=== PATIENT | male | born 1985 | race Caucasian/White ===

== ENCOUNTER 2017-12-30 17:12 | Emergency (ER) | payer OTHER ==
[2017-12-30 17:19] VITALS: BP 0/0; PULSE 103; TEMP 98; BMI 29.2
--- NOTE | 2017-12-30 17:19 | PDOC ---
Rapid Medical Evaluation Time Seen by Provider: 12/30/17 17:13 Medical Evaluation: Allergies Allergy/AdvReac Type Severity Reaction Status Date / Time No Known Allergies Allergy Verified 06/20/16 17:25 I have performed a brief in-person evaluation of this patient. The patient presents with a chief complaint of: right eye redness and drainage since last night. From [facility] [employer] workers deny fall or trauma to right eye Pertinent physical exam findings: injected right conjunctiva with mild swelling to right infraorbital region. minimal yellow discharge on lid margin I have ordered the following: nothing The patient will be discharged from triage with an rx for erythromycin eye ointment. instructed them to apply as prescribed and return to the ER with any worsening or concerning symptoms Workers verbalize understanding of all instructions. Discharge Disposition - Diagnosis Conjunctivitis Qualifiers: Conjunctivitis type: acute Acute conjunctivitis type: bacterial Laterality: right Qualified Code(s): H10.31 - Unspecified acute conjunctivitis, right eye - Discharge Dispostion Disposition: HOME Condition at time of disposition: Good - Prescriptions Prescriptions: Erythromycin 0.5% Eye Ointment [Erythromycin 0.5% Eye Ointment -] 1 applic OD TID #1 tube - Referrals - Patient Instructions Printed Discharge Instructions: DI for Conjunctivitis Additional Instructions: Discharge Instructions: -A prescription for eye ointment has been sent to your pharmacy; please use as prescribed for 7 days -Apply warm compresses to affected eye 3 times per day -Return to the ER with any worsening or concerning symptoms - Post Discharge Activity
== END 2017-12-30 17:27 | disposition home or self-care (01) ==
LOC: JERFT 17:12
DX: H57.8 Other specified disorders of eye and adnexa (principal); L54 Erythema in diseases classified elsewhere
CPT/HCPCS: 99281-25

== ENCOUNTER 2021-03-13 17:20 | Emergency (ER) | payer OTHER | END 2021-03-13 18:52 | disposition home or self-care (01) | LOC: JER 17:20 | DX: S01.512A Laceration without foreign body of oral cavity, initial encounter (principal) | CPT/HCPCS: 99281-25 ==

== ENCOUNTER 2023-05-08 20:35 | Emergency (ER) | payer OTHER ==
[2023-05-08 20:55] VITALS: BP 128/98; PULSE 92; RESP 18; BMI 30.7
[2023-05-08] MEDS ORDERED: LORazepam 2 MG/ML SDV VIAL IM ONE (22:52)
[2023-05-08] MEDS ORDERED: hydrOXYzine HCL 100 MG/2 ML VIAL IM ONE (23:34)
[2023-05-08] MEDS ORDERED: hydrOXYzine HCL 50 MG/ML VIAL IM ONE (23:38)
== END 2023-05-09 00:45 | disposition home or self-care (01) ==
LOC: JER 20:35
PROC: 3E023GC Introduction of Other Therapeutic Substance into Muscle, Percutaneous Approach (ICD-10-PCS; principal; 2023-05-08)
PROC: 3E023GC Introduction of Other Therapeutic Substance into Muscle, Percutaneous Approach (ICD-10-PCS; 2023-05-08)
DX: S00.11XA Contusion of right eyelid and periocular area, initial encounter (principal); S00.81XA Abrasion of other part of head, initial encounter; X58.XXXA Exposure to other specified factors, initial encounter
CPT/HCPCS: 99284-25

== ENCOUNTER 2025-04-25 15:41 | Emergency (ER) | payer OTHER ==
[2025-04-25 15:50] VITALS: BP 146/91; PULSE 77; RESP 18; TEMP 98.2; BMI 32.2
[2025-04-25] MEDS ORDERED: MOXIFLOXACIN HCL 0.5% OPHTHALMIC 3 ML BOTTLE OS ONE (16:14)
[2025-04-25] MEDS ORDERED: prednisoLONE ACETATE 1% OPHTH SUSP 5 ML BOTTLE OS ONE (16:15)
== END 2025-04-25 16:48 | disposition home or self-care (01) ==
LOC: JER 15:41
DX: L53.9 Erythematous condition, unspecified (principal); T78.40XA Allergy, unspecified, initial encounter
CPT/HCPCS: 99283-25